=== PATIENT | female | born 1990 | race African-American/Black ===

== ENCOUNTER 2018-07-20 18:31 | Emergency (ER) | payer SELFPAY ==
--- NOTE | 2018-07-20 20:29 | RAD REPORT ---
EXAM DESCRIPTION: RAD - Knee Right 3 View - 07/20/2018 7:28 pm CLINICAL HISTORY: Knee pain COMPARISON: None. FINDINGS: No fracture, dislocation or periosteal reaction.No joint effusion seen. No joint space shirley rowing. No foreign body or other soft tissue abnormality. IMPRESSION: Negative right knee. Clinical concerns for internal derangement or occult bony injury could be further assessed with MR im aging.
--- NOTE | 2018-07-20 21:19 | RAD REPORT ---
EXAM DESCRIPTION: US - Extremity Venous Uni Ltd - 07/20/2018 9:11 pm CLINICAL HISTORY: Leg pain and swelling COMPARISON: None. TECHNIQUE: Real-time sonographic evaluation of the right lower extremity deep venous systems was per formed. FINDINGS: Normal compressibility, flow augmentation, phasic flow and spontaneous flow are identified in the right lower extremity common femoral, superficial femoral, popliteal and posterior tibial vei ns. No intraluminal filling defects seen. A 3 centimeter right popliteal fossa cyst is present. IMPRESSION: No DVT in the right lower extremity. A 3 centimeter right popliteal fossa cyst is present with no rupture or hemorrhage suspected.
--- NOTE | 2018-07-20 21:26 | ER ---
Nurse's Notes [facility] Name: Shweta Alatorre Age: 28 yrs Sex: Female : 1990 Arrival Date: 07/20/2018 Time: 18:34 Bed 30 Private MD: Diagnosis: Pain in right knee;Synovial cyst of popliteal space [Mcghee], right knee Presentation: 07/20 18:35 Presenting complaint: Patient states: right knee pain and swelling x 1 day. "I heard a sv pop yesterday.". Transition of care: patient was not received from another setting of care. Onset of symptoms was July 19, 2018. Care prior to arrival: None. 18:35 Method Of Arrival: Ambulatory sv 18:35 Acuity: GABRIELLE 4 sv 21:15 Risk Assessment: Do you want to hurt yourself or someone else? Patient reports no fc desire to harm self or others. Initial Sepsis Screen: Does the patient meet any 2 criteria? No. Patient's initial sepsis screen is negative. Does the patient have a suspected source of infection? No. Patient's initial sepsis screen is negative. Triage Assessment: 18:35 General: Appears in no apparent distress. uncomfortable, Behavior is calm, cooperative, sv appropriate for age. Pain: Denies pain. Neuro: Level of Consciousness is awake, alert, obeys commands, Oriented to person, place, time, situation, Moves all extremities. Respiratory: Respiratory effort is even, unlabored, Respiratory pattern is regular, symmetrical. Derm: Skin is normal. Musculoskeletal: Range of motion: limited in right knee Reports pain in right knee. 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 - Social history:: Smoking status: unknown. - Ebola Screening: : Patient negative for fever greater than or equal to 101.5 degrees Fahrenheit, and additional compatible Ebola Virus Disease symptoms Patient denies exposure to infectious person Patient denies travel to an Ebola-affected area in the 21 days before illness onset. Screenin:13 Abuse screen: Denies threats or abuse. Nutritional screening: No deficits noted. fc Tuberculosis screening: No symptoms or risk factors identified. Fall Risk None identified. Assessment: 20:00 General: Appears in no apparent distress. comfortable, slender, Behavior is calm, fc cooperative, appropriate for age. Pain: Complains of pain in right knee Quality of pain is described as aching, dull, pressure, Pain began 1 day ago. Is continuous, Aggravated by increased activity, repositioning, weight bearing. Neuro: Level of Consciousness is awake, alert, obeys commands, Oriented to person, place, time, situation, Appropriate for age. Cardiovascular: No deficits noted. Respiratory: No deficits noted. GI: No deficits noted. : No deficits noted. EENT: No deficits noted. Derm: Skin is pink, warm \\T\\ dry. Musculoskeletal: Circulation, motion, and sensation intact. Capillary refill < 3 seconds, Range of motion: limited in right knee. 20:24 Reassessment: Harley BENDER in to see and examine pt. fc 20:55 Reassessment: No changes from previously documented assessment. Patient and/or family fc updated on plan of care and expected duration. Pain level reassessed. Patient is alert, oriented x 3, equal unlabored respirations, skin warm/dry/pink. Pt has gone to US via wheelchair. 21:21 Reassessment: Harley BENDER in to see and explain results to pt. fc Vital Signs: 18:36 BP 136 / 87; Pulse 75; Resp 18; Temp 98.7; Pulse Ox 99% ; Weight 62.6 kg; Height 5 ft. sv 4 in. (162.56 cm); Pain 0/10; 21:45 BP 127 / 92; Pulse 76; Resp 20; Temp 98.0; Pulse Ox 99% ; Pain 2/10; fc 18:36 Body Mass Index 23.69 (62.60 kg, 162.56 cm) sv ED Course: 18:34 Patient arrived in ED. as 18:36 Triage completed. sv 18:37 Arm band placed on. sv 19:29 Knee Right 3 View XRAY In Process Unspecified. EDMS 19:57 Harley Banerjee PA is PHCP. jmm 19:57 Carlos Morales MD is Attending Physician. jmm 20:13 Patient has correct armband on for positive identification. Bed in low position. Call fc light in reach. 20:13 No provider procedures requiring assistance completed. fc 21:11 US Extremity Venous Unilateral Ltd In Process Unspecified. EDMS 21:25 Aakash Aldrich MD is Referral Physician. hema 21:52 Patient did not have IV access during this emergency room visit. Knee immobilizer fc applied on right knee. Administered Medications: No medications were administered Outcome: : Discharge ordered by MD. [facility] 21:53 Discharged to home via wheelchair, with family. fc 21:53 Condition: good 21:53 Discharge instructions given to patient, family, Instructed on discharge instructions, follow up and referral plans. medication usage, immobilizer Demonstrated understanding of instructions, follow-up care, medications, splint care, Prescriptions given X 1. 21:55 Patient left the ED. fc Signatures: Dispatcher [employer] Diamante Seth, RN RN Harley Hidalgo PA PA jmm Chretien, Felicia, RN RN Agnes Mathew as
--- NOTE | 2018-07-20 21:26 | EDPHYS ---
Physician Documentation [facility] Name: Shweta Alatorre Age: 28 yrs Sex: Female : 1990 Arrival Date: 07/20/2018 Time: 18:34 Bed 30 Private MD: ED Physician Carlos Morales HPI: 07/20 19:58 This 28 yrs old Black Female presents to ER via Ambulatory with complaints of Knee Pain.m 19:58 The patient presents with an injury, pain, that is acute. Onset: The symptoms/episode jmm began/occurred acutely, yesterday. Modifying factors: The symptoms are alleviated by elevating leg, remaining still, the symptoms are aggravated by movement. Associated signs and symptoms: Pertinent negatives fever, numbness. This is a 28 year old female with a history of chronic knee pain which presents to the ED with right knee pain yesterday after standing and feeling a pop in the anterior portion of her knee. Patient states she feels like a "lump" is behaind the right knee. Patient denies other injury. . 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 - Social history:: Smoking status: unknown. - Ebola Screening: : Patient negative for fever greater than or equal to 101.5 degrees Fahrenheit, and additional compatible Ebola Virus Disease symptoms Patient denies exposure to infectious person Patient denies travel to an Ebola-affected area in the 21 days before illness onset. ROS: 19:58 Constitutional: Negative for fever, chills, and weight loss. jmm 19:58 MS/extremity: Positive for injury or acute deformity, pain. 19:58 All other systems are negative. Exam: 19:58 Head/Face: atraumatic. Chest/axilla: Normal chest wall appearance and motion. [facility] Cardiovascular: Regular rate and rhythm. No edema appreciated Respiratory: Normal respirations, no respiratory distress appreciated Abdomen/GI: Non distended, soft Back: Normal ROM 19:58 Constitutional: The patient appears in no acute distress, alert, awake. 19:58 Musculoskeletal/extremity: FROM appreciated to the right knee, anterior swelling is appreciated, posterior pain on palpation, no obvious deformity is appreciated. Compartments are soft, NVI. 19:58 Skin: Appearance: Color: normal in color. 19:58 Neuro: Orientation: is normal, Mentation: is normal, Memory: is normal. 19:58 Psych: Behavior/mood is pleasant, cooperative. Vital Signs: 18:36 BP 136 / 87; Pulse 75; Resp 18; Temp 98.7; Pulse Ox 99% ; Weight 62.6 kg; Height 5 ft. sv 4 in. (162.56 cm); Pain 0/10; 21:45 BP 127 / 92; Pulse 76; Resp 20; Temp 98.0; Pulse Ox 99% ; Pain 2/10; fc 18:36 Body Mass Index 23.69 (62.60 kg, 162.56 cm) sv MDM: 19:58 Patient medically screened. [facility] 21:24 Data reviewed: vital signs, nurses notes. Counseling: I had a detailed discussion with [facility] the patient and/or guardian regarding: the historical points, exam findings, and any diagnostic results supporting the discharge/admit diagnosis, radiology results, the need for outpatient follow up, to return to the emergency department if symptoms worsen or persist or if there are any questions or concerns that arise at home. 21:24 Data reviewed: radiologic studies, plain films, ultrasound. [facility] 07/20 18:58 Order name: Knee Right 3 View XRAY; Complete Time: 20:34 07/20 20:23 Order name: US Extremity Venous Unilateral Ltd; Complete Time: 21:26 [facility] 07/20 21:24 Order name: Knee Immobilizer; Complete Time: 21:43 [facility] Administered Medications: No medications were administered Disposition: 07/21 09:39 Co-signature as Attending Physician, Carlos Morales MD I agree with the assessment and alli plan of care. Disposition: 07/20/18 21:25 Discharged to Home. Impression: Pain in right knee, Synovial cyst of popliteal space [Mcghee], right knee. - Condition is Stable. - Discharge Instructions: Mcghee Cyst, Knee Pain. - Prescriptions for Ibuprofen 600 mg Oral Tablet - take 1 tablet by ORAL route every 6 hours As needed take with food; 30 tablet. - Medication Reconciliation Form, Thank You Letter, Antibiotic Education, Prescription Opioid Use, Work release form form. - Follow up: Aakash Aldrich MD; When: As needed; Reason: Recheck today's complaints, Continuance of care, Re-evaluation by your physician. Signatures: Dispatcher [employer] Diamante Seth, Carlos Blas RN, MD MD cha Mickail, Joel, PA PA jmm Chretien, Felicia, RN RN fc Corrections: (The following items were deleted from the chart) 07/20 21:55 21:25 07/20/2018 21:25 Discharged to Home. Impression: Pain in right knee; Synovial fc cyst of popliteal space [Mcghee], right knee. Condition is Stable. Forms are Medication Reconciliation Form, Thank You Letter, Antibiotic Education, Prescription Opioid Use. Follow up: Aakash Aldrich; When: As needed; Reason: Recheck today's complaints, Continuance of care, Re-evaluation by your physician. hema
[2018-07-20 22:00] VITALS: O2SAT 99
[2018-07-20 22:02] VITALS: BP 127/92; TEMP 98
== END 2018-07-20 21:55 | disposition home or self-care (01) ==
LOC: ER 18:31
DX: M71.21 Synovial cyst of popliteal space [Baker], right knee (principal)
CPT/HCPCS: 93971; 99283

== ENCOUNTER 2019-11-10 22:47 | Emergency (ER) | payer OTHER, SELFPAY ==
--- OUTSIDE RECORDS SUMMARY | 2019-11-10 22:49 | XMS REPORT ---
:1990 [facility] Address [address] [place] [address] Care Team Providers Name Role Phone Unavailable Unavailable Unavailable Problems This patient has no known problems. Allergies, Adverse Reactions, Alerts This patient has no known allergies or adverse reactions. Medications This patient has no known medications.
[2019-11-10] MEDS ORDERED: PROMETHAZINE INJ 25 MG/ML AMP ONE (23:21)
[2019-11-10] MEDS ORDERED: NA CHLORIDE 0.9% 1,000 ML ONE (23:21)
[2019-11-10 23:37] LABS: Absolute Lymphocytes (CBC) 1.3 K/uL (0.7-4.9); Basophils % 0.3 % (0-1.3); Hematocrit 34.3 % (36.0-45.0); Lymphocytes % 15.9 % (15.3-44.8); RBC Red Blood Cell Count 3.92 M/uL (3.86-4.86)
[2019-11-10 23:37] LABS: Urine Bacteria 20-50 /HPF (<20); Urine Culture Reflex Order REFLEXED; Urine Mucus 1+ /HPF (NONE SEEN); Urine RBC NONE SEEN /HPF (NONE SEEN)
[2019-11-11] MEDS ORDERED: CEFTRIAXONE/SWI 1gm 1 GM/10 ML SYR ONE (00:01)
[2019-11-11 00:07] LABS: BUN Blood Urea Nitrogen 5 mg/dL (7-18); Bicarbonate 24 mmol/L (21-32); Glucose Level 91 mg/dL (74-106); Potassium 4.1 mmol/L (3.5-5.1); Sodium Level 134 mmol/L (136-145)
[2019-11-11 00:08] LABS: HCG, Quantitative 91575 mIU/mL (1-3)
--- NOTE | 2019-11-11 01:15 | ER ---
Nurse's Notes [facility] Name: Shweta Alatorre Age: 29 yrs Sex: Female : 1990 Arrival Date: 11/10/2019 Time: 22:53 Bed 14 Private MD: Diagnosis: Vomiting of , unspecified Presentation: 11/10 23:00 Presenting complaint: Patient states: I feel nauseous, likes to vomit, feels weak and rr5 cannot take anything. started beginning of October. I am 8 weeks . denies diarrhea, cough and problem in urine. 23:00 Transition of care: patient was not received from another setting of care. Onset of rr5 symptoms was October 2019. Risk Assessment: Do you want to hurt yourself or someone else? Patient reports no desire to harm self or others. Initial Sepsis Screen: Does the patient meet any 2 criteria? No. Patient's initial sepsis screen is negative. Does the patient have a suspected source of infection? No. Patient's initial sepsis screen is negative. Care prior to arrival: None. 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 - Coronavirus screen:: The patient has NOT traveled to [place], [place], or [place] in the past 14 days. - Social history:: Smoking status: Patient denies any tobacco usage or history of. Patient/guardian denies using alcohol, street drugs. - Ebola Screening: : Patient negative for fever greater than or equal to 101.5 degrees Fahrenheit, and additional compatible Ebola Virus Disease symptoms Patient denies exposure to infectious person Patient denies travel to an Ebola-affected area in the 21 days before illness onset. Screenin:10 Abuse screen: Denies threats or abuse. Denies injuries from another. Nutritional rr5 screening: No deficits noted. Tuberculosis screening: No symptoms or risk factors identified. Fall Risk IV access (20 points). Total Guillen Fall Scale indicates No Risk (0-24 pts). Assessment: 23:00 General: Appears in no apparent distress. uncomfortable, ill, Behavior is calm, rr5 cooperative, appropriate for age. Pain: Denies pain. Neuro: Level of Consciousness is awake, alert, obeys commands, Oriented to person, place, time, situation, Appropriate for age. Cardiovascular: Capillary refill < 3 seconds Patient's skin is warm and dry. Respiratory: Airway is patent Respiratory effort is even, unlabored, Respiratory pattern is regular, symmetrical. GI: Abdomen is flat, Reports intolerance of fluids, intolerance of food, nausea, vomiting, Patient currently denies diarrhea. : Denies pain. EENT: No signs and/or symptoms were reported regarding the EENT system. Derm: Skin is intact, is healthy with good turgor, Skin temperature is warm. Musculoskeletal: Circulation, motion, and sensation intact. Capillary refill < 3 seconds. 11/11 00:00 Reassessment: Patient appears in no apparent distress at this time. Patient is alert, rr5 oriented x 3, equal unlabored respirations, skin warm/dry/pink. no vomiting noted, patient is resting on bed eyes closed breathing spontaneously at room air. Patient states symptoms have improved. 01:00 Reassessment: Patient appears in no apparent distress at this time. Patient is alert, rr5 oriented x 3, equal unlabored respirations, skin warm/dry/pink. no vomiting noted after PO challenge, ED provider aware Patient states symptoms have improved. 01:29 Reassessment: Patient appears in no apparent distress at this time. Patient is alert, rr5 oriented x 3, equal unlabored respirations, skin warm/dry/pink. discharge instruction given nd explained without complaints made, verbalized understading. Patient states feeling better. Patient states symptoms have improved. Vital Signs: 11/10 23:00 BP 133 / 89; Pulse 94; Resp 17; Temp 98.1; Pulse Ox 99% ; Weight 64.86 kg; Height 5 ft. rr5 5 in. (165.10 cm); Pain 0/10; 11/11 00:00 BP 117 / 78; Pulse 60; Resp 18; Pulse Ox 99% ; rr5 01:00 BP 119 / 71; Pulse 69; Resp 16; Temp 98; Pulse Ox 100% ; rr5 01:29 BP 110 / 62; Pulse 65; Resp 15; Temp 98.7; Pulse Ox 100% ; rr5 11/10 23:00 Body Mass Index 23.80 (64.86 kg, 165.10 cm) rr5 ED Course: 11/10 22:53 Patient arrived in ED. es 22:53 Ruddy Tinsley, RN is Primary Nurse. rr5 22:56 Ian Fair NP is PHCP. pm1 22:56 Donald Lyons MD is Attending Physician. pm1 23:00 Arm band placed on right wrist. rr5 23:08 Triage completed. rr5 23:30 No provider procedures requiring assistance completed. Inserted saline lock: 22 gauge rr5 in left antecubital area, using aseptic technique. Blood collected. Administered Medications: 23:30 Drug: NS 0.9% 1000 ml Route: IV; Rate: 1000 ml; Site: left antecubital; rr5 11/11 00:40 Follow up: Response: No adverse reaction; IV Status: Completed infusion; IV Intake: rr5 1000ml 11/10 23:32 Drug: Phenergan 12.5 mg Route: IVP; Site: left antecubital; rr5 11/11 00:40 Follow up: Response: No adverse reaction; Nausea is decreased rr5 00:01 Drug: Rocephin 1 grams Route: IV; Rate: calculated rate; Site: left antecubital; rr5 00:41 Follow up: Response: No adverse reaction; IV Status: Completed infusion; IV Intake: [id number] Intake: 00:40 IV: 1000ml; Total: 1000ml. rr5 00:41 IV: 10ml; Total: 1010ml. rr5 Outcome: 01:14 Discharge ordered by . pm1 01:30 Patient left the ED. rr5 Signatures: Akilah Serra Patrick, NP STRETCHER DRIER OPERATOR pm1 Ruddy Tinsley, RN RN rr5
--- NOTE | 2019-11-11 01:16 | EDPHYS ---
Physician Documentation [facility] Name: Shweta Alatorre Age: 29 yrs Sex: Female : 1990 Arrival Date: 11/10/2019 Time: 22:53 Bed 14 Private MD: ED Physician Donald Lyons HPI: 11/11 00:01 This 29 yrs old Black Female presents to ER via Ambulatory with complaints of pm1 Nausea/Vomiting, Decreased Appetite, 8wks preg. 00:01 The patient presents to the emergency department with nausea, vomiting. Onset: The pm1 symptoms/episode began/occurred 1 month(s) ago. Possible causes: . The symptoms are aggravated by food , The symptoms are alleviated by nothing. Associated signs and symptoms: Pertinent negatives: abdominal pain, dysuria, fever, vaginal discharge. Severity of symptoms: in the emergency department the symptoms are unchanged Pain is currently a 0 / 10. The patient has not experienced similar symptoms in the past. The patient has not recently seen a physician, has an appointment scheduled. Patient reports onset of nausea and vomiting at the beginning of the year. She has difficulty with keeping any foods down. Has been able to drink fluids and has been having no issues with urinating. LARRIMAN HELPER: 11/10 23:00 LMP 09/15/2019 rr5 Historical: - Allergies: 23:00 No Known Allergies; rr5 - Home Meds: 23:00 None [Active]; rr5 - PMHx: 23:00 Panic Attacks; rr5 - PSHx: 23:00 Hernia repair; rr5 - Immunization history:: Adult Immunizations up to date. - Coronavirus screen:: The patient has NOT traveled to [place], [place], or [place] in the past 14 days. - Social history:: Smoking status: Patient denies any tobacco usage or history of. Patient/guardian denies using alcohol, street drugs. - Ebola Screening: : Patient negative for fever greater than or equal to 101.5 degrees Fahrenheit, and additional compatible Ebola Virus Disease symptoms Patient denies exposure to infectious person Patient denies travel to an Ebola-affected area in the 21 days before illness onset. ROS: 11/11 00:01 Constitutional: Negative for fever, chills, and weight loss, Cardiovascular: Negative pm1 for chest pain, palpitations, and edema, Respiratory: Negative for shortness of breath, cough, wheezing, and pleuritic chest pain. Back: Negative for injury and pain, MS/Extremity: Negative for injury and deformity, Skin: Negative for injury, rash, and discoloration, Neuro: Negative for headache, weakness, numbness, tingling, and seizure. Abdomen/GI: Positive for nausea and vomiting, Negative for abdominal pain, diarrhea, constipation. Exam: 00:01 Constitutional: This is a well developed, well nourished patient who is awake, alert, pm1 and in no acute distress. Head/Face: Normocephalic, atraumatic. Neck: Trachea midline, no thyromegaly or masses palpated, and no cervical lymphadenopathy. Supple, full range of motion without nuchal rigidity, or vertebral point tenderness. No Meningismus. Chest/axilla: Normal chest wall appearance and motion. Nontender with no deformity. No lesions are appreciated. Cardiovascular: Regular rate and rhythm with a normal S1 and S2. No gallops, murmurs, or rubs. No pulse deficits. Respiratory: Lungs have equal breath sounds bilaterally, clear to auscultation and percussion. No rales, rhonchi or wheezes noted. No increased work of breathing, no retractions or nasal flaring. Abdomen/GI: Soft, non-tender, with normal bowel sounds. No distension or tympany. No guarding or rebound. No evidence of tenderness throughout. Back: No spinal tenderness. No costovertebral tenderness. Full range of motion. Skin: Warm, dry with normal turgor. Normal color with no rashes, no lesions, and no evidence of cellulitis. MS/ Extremity: Pulses equal, no cyanosis. Neurovascular intact. Full, normal range of motion. 00:01 Neuro: Orientation: is normal, Motor: is normal, moves all fours. Vital Signs: 11/10 23:00 BP 133 / 89; Pulse 94; Resp 17; Temp 98.1; Pulse Ox 99% ; Weight 64.86 kg; Height 5 ft. rr5 5 in. (165.10 cm); Pain 0/10; 11/11 00:00 BP 117 / 78; Pulse 60; Resp 18; Pulse Ox 99% ; rr5 01:00 BP 119 / 71; Pulse 69; Resp 16; Temp 98; Pulse Ox 100% ; rr5 01:29 BP 110 / 62; Pulse 65; Resp 15; Temp 98.7; Pulse Ox 100% ; rr5 11/10 23:00 Body Mass Index 23.80 (64.86 kg, 165.10 cm) rr5 MDM: 11/10 22:57 Patient medically screened. pm1 11/11 00:05 Data reviewed: vital signs. Data interpreted: Pulse oximetry: on room air is 99 %. pm1 Interpretation: normal. 01:14 Counseling: I had a detailed discussion with the patient and/or guardian regarding: the pm1 historical points, exam findings, and any diagnostic results supporting the discharge/admit diagnosis, lab results, the need for outpatient follow up, an OB/Gyne specialist, to return to the emergency department if symptoms worsen or persist or if there are any questions or concerns that arise at home. 11/10 23:07 Order name: Quantitative Hcg; Complete Time: 00:33 pm1 11/10 23:07 Order name: Basic Metabolic Panel; Complete Time: 00:33 pm1 11/10 23:07 Order name: CBC with Diff; Complete Time: 23:53 pm1 11/10 23:07 Order name: Urine Microscopic Only; Complete Time: 23:53 pm1 11/10 23:39 Order name: Urine Culture EDGA 11/10 23:07 Order name: Urine Test (obtain specimen); Complete Time: 23:32 pm1 11/10 23:07 Order name: IV Saline Lock; Complete Time: 23:32 pm1 11/10 23:07 Order name: Labs collected and sent; Complete Time: 23:32 pm1 11/10 23:07 Order name: NPO; Complete Time: 23:33 pm1 11/10 23:07 Order name: Urine Dipstick-Ancillary (obtain specimen); Complete Time: 23:33 pm1 11/10 23:07 Order name: PO challenge; Complete Time: 01:03 pm1 Administered Medications: 11/10 23:30 Drug: NS 0.9% 1000 ml Route: IV; Rate: 1000 ml; Site: left antecubital; rr5 11/11 00:40 Follow up: Response: No adverse reaction; IV Status: Completed infusion; IV Intake: rr5 1000ml 11/10 23:32 Drug: Phenergan 12.5 mg Route: IVP; Site: left antecubital; rr5 11/11 00:40 Follow up: Response: No adverse reaction; Nausea is decreased rr5 00:01 Drug: Rocephin 1 grams Route: IV; Rate: calculated rate; Site: left antecubital; rr5 00:41 Follow up: Response: No adverse reaction; IV Status: Completed infusion; IV Intake: [id number] Disposition: 11/11/19 01:14 Discharged to Home. Impression: Vomiting of , unspecified. - Condition is Stable. - Discharge Instructions: Morning Sickness. - Prescriptions for Phenergan 25 mg Rectal Suppository - insert 1 suppository by RECTAL route every 6 hours As needed; 12 suppository. promethazine 25 mg Oral Tablet - take 1 tablet by ORAL route every 6 hours As needed; 20 tablet. - Medication Reconciliation Form, Thank You Letter, Antibiotic Education, Prescription Opioid Use form. - Follow up: Emergency Department; When: As needed; Reason: Worsening of condition. Follow up: Private Physician; When: 2 - 3 days; Reason: Recheck today's complaints, Continuance of care, Re-evaluation by your physician. - Problem is new. - Symptoms have improved. Addendum: 11/12/2019 07:49 Co-signature as Attending Physician, Donald Lyons MD I agree with the assessment and t w4 plan of care. Signatures: Dispatcher [employer] EDMS Ian Fair, TUBE DRAW HELPER TUBE DRAW HELPER pm1 Donald Lyons MD MD tw4 Ruddy Tinsley, RN RN rr5 Corrections: (The following items were deleted from the chart) 11/11 01:30 01:14 11/11/2019 01:14 Discharged to Home. Impression: Vomiting of , rr5 unspecified. Condition is Stable. Forms are Medication Reconciliation Form, Thank You Letter, Antibiotic Education, Prescription Opioid Use. Follow up: Emergency Department; When: As needed; Reason: Worsening of condition. Follow up: Private Physician; When: 2 - 3 days; Reason: Recheck today's complaints, Continuance of care, Re-evaluation by your physician. Problem is new. Symptoms have improved. pm1
[2019-11-11 02:42] VITALS: O2SAT 100
[2019-11-11 02:43] VITALS: BP 110/62; TEMP 98.7
== END 2019-11-11 01:30 | disposition home or self-care (01) ==
LOC: ER 22:47
DX: O21.9 Vomiting of pregnancy, unspecified (principal); Z3A.08 8 weeks gestation of pregnancy
CPT/HCPCS: 96365; 96361; 87088; 85025; 87086; 80048; 36415; 84702; 81015; 96375; 99283; J2550; J7030

== ENCOUNTER 2021-01-28 11:16 | Day surgery (SDC) | payer OTHER ==
[2021-01-23 10:52] LABS: Protime INR 1.18
[2021-01-23 11:01] LABS: Absolute Lymphocytes (CBC) 1.3 K/uL (0.7-4.9); Basophils % 0.9 % (0-1.3); Hematocrit 38.2 % (36.0-45.0); Lymphocytes % 29.6 % (15.3-44.8); MPV 8.1 fL (7.6-11.3); RBC Red Blood Cell Count 4.31 M/uL (3.86-4.86)
--- NOTE | 2021-01-23 11:02 | RAD REPORT ---
EXAM DESCRIPTION: RAD - Chest Pa And Lat (2 Views) - 01/23/2021 10:51 am CLINICAL HISTORY: Preop Chest pain. COMPARISON: Chest Single View dated 11/09/2017; Chest Pa And Lat (2 Views) dated 02/03/2017; Knee Righ t Wo Cont dated 12/23/2020; Knee Right 2 View dated 12/06/2020; Knees José Miguel Standing dated 12/06/2020 FINDINGS: The lungs are clear. The heart is upper limit of normal in size. No displaced fractures. IMPRESSION: No acute or concerning finding suspected.
[2021-01-23 11:03] LABS: BUN Blood Urea Nitrogen 10 mg/dL (7-18); Bicarbonate 29 mmol/L (21-32); Glucose Level 88 mg/dL (74-106); Potassium 4.5 mmol/L (3.5-5.1); Sodium Level 142 mmol/L (136-145)
[2021-01-28] MEDS ORDERED: Ringers Lactate 1,000 ML IV ONE (11:45)
[2021-01-28] MEDS ORDERED: CEFAZOLIN/SWI 1gm 1 GM/10 ML SYR ONE (11:45)
[2021-01-28] MEDS ORDERED: FENTANYL CITR 100 MCG/2 ML ONE ×2 (13:52→15:37)
[2021-01-28] MEDS ORDERED: propofoL 200 MG/20 ML VIAL IV ONE (13:52)
[2021-01-28] MEDS ORDERED: LIDOCAINE 2% MPF 5 ML VIAL ONE (13:53)
[2021-01-28] MEDS ORDERED: MIDAZOLAM HCL 2 MG/2 ML INJ ONE (13:53)
[2021-01-28] MEDS ORDERED: BUPIVACAINE 0.25% PF 30 ML VIAL ONE (14:11)
[2021-01-28] MEDS ORDERED: dexAMETHasone 4 MG/ML VIAL ONE (14:37)
[2021-01-28] MEDS ORDERED: KETOROLAC 30 MG/ML INJ ONE (14:38)
[2021-01-28] MEDS ORDERED: ONDANSETRON 4 MG/2 ML VIAL ONE (14:38)
--- NOTE | 2021-01-28 15:37 | P.BOP ---
Preoperative diagnosis: right knee pigmented villonodular synovitis Postoperative diagnosis: same Primary procedure: right knee arthroscopic synovectomy with medial plica excision Sales Compensation Analyst: NONE,NONE Estimated blood loss: 5 cc Specimen: right knee synovial tissue Findings: see dictation Anesthesia: General Complications: None Implants: none Fluids & blood products: per anesthesia record; TT: 51 mins @ 250 mmHg Transferred to: Recovery Room Condition: Good
[2021-01-28 15:48] VITALS: O2SAT 100
[2021-01-28 16:19] VITALS: BP 141/92; TEMP 96
[2021-01-28] MEDS ORDERED: HYDROCODONE/APAP 5/325 MG TAB ONE (16:29)
--- NOTE | 2021-01-28 23:02 | OP ---
Date of Procedure: 01/28/2021 Surgeon: Elijah Croft MD Preoperative Diagnosis: Right knee pigmented villonodular synovitis. Postoperative Diagnosis: Right knee pigmented villonodular synovitis. Procedure Performed: Right knee arthroscopic synovectomy with medial plica excision. Anesthesia: General LMA. Fluids: Per Anesthesia record. Estimated Blood Loss: 5 cc. Complications: None. Implants: None. Tourniquet Time: 51 minute at 250 mmHg. Indications For Procedure: Shweta is a 30-year-old female who presented to the my clinic with signs , symptoms, and MRI findings consistent with right knee pigmented villonodular synovitis with signifi cant swelling and weakness. I discussed with the patient at length risks and benefits associated wit h operative and nonoperative treatment as well as recurrence. She expressed understanding and electe d to proceed with operative treatment. Description Of Procedure: After informed consent was obtained, the patient was identified in the pre operative holding area. The right lower extremity was marked. The patient was then taken back to e operating room, transferred to the operating table in supine fashion, and placed under general LMA anesthesia. The right lower extremity was then prepped and draped in usual sterile fashion. A time- out was initiated. The correct patient and procedure confirmed and identified the patient did receiv e her preoperative prophylactic antibiotics. The right lower extremity was exsanguinated. The tourn iquet inflated at 250 mmHg. Standard anteromedial, anterolateral portals were created. Diagnostic a rthroscopy was performed. The arthroscope was first brought to the patellofemoral joint where the pa tient was noted to have significant synovitis with finger-like projections confirmed the synovium con sistent with pigmented villonodular synovitis. Pituitary grasper was then used to get some of the sy novial tissue and sent to pathology for further evaluation. A synovectomy was performed using an art hroscopic shaver. Within the patellofemoral joint, medial and lateral gutters as well as around with in the intercondylar notch and anterior compartment. A radiofrequency ablator was then used to aid w ith hemostasis. The arthroscope was then brought in the medial compartment. The patient was noted t o have an intact medial meniscus and was stable to probe without significant chondromalacia noted. T he arthroscope was then brought into the intercondylar notch. The patient was noted to have an intac t ACL and PCL. The arthroscope was then brought in the lateral compartment. The patient was noted t o have an intact lateral meniscus, which was stable to probing. No significant chondromalacia noted. 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 However, no significant fluid was able t o be aspirated. The wounds were then irrigated thoroughly with normal saline and injected with 0.25% Marcaine and approximated using a 3-0 Monocryl. Sterile dressings were applied. The patient was aw akened and transferred to PACU in stable condition. Postoperative Plan: She will be weightbearing as tolerated. She is instructed to ice the knee and e levated to aid with swelling. She will follow up in my clinic next week for wound check. GONZALES/MODL Voice ID: [id number] Report ID: [id number]
== END 2021-01-28 17:10 | disposition home health service (06) ==
LOC: OR 11:16
PROVIDERS: ATTEND Orthopaedic Surgery Sports Medicine
PROC: 0SBC4ZZ Excision of Right Knee Joint, Percutaneous Endoscopic Approach (ICD-10-PCS; principal; 2021-01-28 13:00)
DX: M12.261 Villonodular synovitis (pigmented), right knee (principal); Z20.822 Contact with and (suspected) exposure to COVID-19
CPT/HCPCS: 93005; 85025; 80048; 36415; 81025; 85610; 71046; 29875; U0002; J2704; J1100; J2250; J3010 ×2; J0690; J7120; J2405; 88304; 88305